=== PATIENT | male | born 1960 | race African-American/Black ===

== ENCOUNTER 2019-06-13 20:01 | Inpatient (IN) | payer OTHER ==
[2019-06-13 21:32] VITALS: BMI 30.4
--- NOTE | 2019-06-14 00:43 | HP ---
COWS - Scale Resting Pulse: 0= IN 80 or Below Sweatin=Flushed/Facial Moisture Restless Observation: 0= Sits Still Pupil Size: 1= Pupils >than Normal Bone or Joint Aches: 4=Acute Joint/Muscle Pain Runny Nose/ Eye Tearin= Runny Nose/Eyes GI Upset > 30mins: 2= Nausea/Diarrhea (diarrhea x 2) Tremor Observation: 2= Slight Tremor Visible Yawning Observation: 1= 1-2x During Session Anxiety or Irritability: 2=Irritable/Anxious Goose Flesh Skin: 0=Smooth Skin COWS Score: 16 CIWA Score - Admission Criteria OASAS Guidelines: Admission for Medically Managed Detox: Requires at least one of the followin. CIWA greater than 12 2. Seizures within the past 24 hours 3. Delirium tremens within the past 24 hours 4. Hallucinations within the past 24 hours 5. Acute intervention needed for co occurring medical disorder 6. Acute intervention needed for co occurring psychiatric disorder 7. Severe withdrawal that cannot be handled at a lower level of care (continued vomiting, continued diarrhea, abnormal vital signs) requiring intravenous medication and/or fluids 8. Admission ROS [facility] Chief Complaint: Heroin withdrawal symptoms Allergies/Adverse Reactions: Allergies Allergy/AdvReac Type Severity Reaction Status Date / Time No Known Allergies Allergy Verified 06/13/19 21:10 History of Present Illness: 58 years old male with a long history of heroin dependence is seeking admission to detox. He states that he has been in detox several years ago and reports insignificant period of sobriety. He has medical history of DM type 2, and low back pain. This isd his first admission to [facility] Exam Limitations: Physical Impairment - Ebola screening Have you traveled outside of the country in the last 21 days: No (N) Have you had contact with anyone from an Ebola affected area: No Do you have a fever: No - Review of Systems Constitutional: Chills, Malaise, Night Sweats, Changes in sleep EENT: reports: No Symptoms Reported, Nose Congestion Respiratory: reports: No Symptoms reported Cardiac: reports: No Symptoms Reported GI: reports: No Symptoms Reported, Abdominal Distended : reports: No Symptoms Reported Musculoskeletal: reports: Back Pain, Joint Pain, Other (bilateral log) Integumentary: reports: Dryness, Flushing Neuro: reports: Headache, Tremors Endocrine: reports: No Symptoms Reported Hematology: reports: No Symptoms Reported Psychiatric: reports: Mood/Affect Appropiate, Orientated x3, Anxious Other Systems: Reviewed and Negative Patient History - Patient Medical History Hx Anemia: No Hx Asthma: No Hx Chronic Obstructive Pulmonary Disease (COPD): No Hx Cancer: No Hx Cardiac Disorders: No Hx Congestive Heart Failure: No Hx Hypertension: Yes Hx Hypercholesterolemia: Yes Hx Pacemaker: No HX Cerebrovascular Accident: No Hx Seizures: No Hx Dementia: No Hx Diabetes: Yes (Metformin) Hx Gastrointestinal Disorders: Yes (Omeprazole) Hx Liver Disease: No Hx Genitourinary Disorders: No Hx Sexually Transmitted Disorders: No Hx Renal Disease (ESRD): No Hx Thyroid Disease: No Hx Human Immunodeficiency Virus (HIV): No (Negative) Hx Hepatitis C: No Hx Depression: No Hx Suicide Attempt: No (Denies suicidal ideation at this time) Hx Bipolar Disorder: No Hx Schizophrenia: No - Patient Surgical History Past Surgical History: Yes Hx Neurologic Surgery: No Hx Cataract Extraction: No Hx Cardiac Surgery: No Hx Lung Surgery: No Hx Abdominal Surgery: No Hx Appendectomy: No Hx Cholecystectomy: No Hx Genitourinary Surgery: No Hx Orthopedic Surgery: No Other Surgical History: Hemmoroid 1998 Anesthesia Reaction: No - PPD History Previous Implant?: Yes Documented Results: Negative w/o proof Implanted On Prior R Admission?: No PPD to be Administered?: Yes - Reproductive History Patient is a Female of Child Bearing Age (11 -55 yrs old): No (male) - Smoking Cessation Smoking history: Current every day smoker Have you smoked in the past 12 months: Yes Aproximately how many cigarettes per day: 10 Hx Chewing Tobacco Use: No Initiated information on smoking cessation: Yes 'Breaking Loose' booklet given: 06/14/19 - Substance & Tx. History Hx Alcohol Use: No Hx Substance Use: Yes Substance Use Type: Heroin Hx Substance Use Treatment: Yes - Substances abused Heroin Substance route: Inhalation Frequency: Daily Amount used: 1 to 2 bundles ( 1 bundle is 10 bags) Age of first use: 54 Date of last use: 06/13/19 Admission Physical Exam [facility] - Vital Signs Vital Signs: Vital Signs - 24 hr 06/13/19 21:10 Temperature 99.9 F H Pulse Rate 77 Respiratory 20 Rate Blood Pressure 138/77 - Physical General Appearance: Yes: Nourished, Tremorous, Anxious HEENTM: Yes: EOMI, Normal ENT Inspection, Normal Voice, SANDRA Respiratory: Yes: Lungs Clear, Normal Breath Sounds, No Respiratory Distress Neck: Yes: Within Normal Limits, Supple Breast: Yes: Breast Exam Deferred Cardiology: Yes: Regular Rhythm, Regular Rate Abdominal: Yes: Normal Bowel Sounds, Soft Genitourinary: Yes: Within Normal Limits Back: Yes: Normal Inspection Musculoskeletal: Yes: Within Normal Limits Extremities: Yes: Tremors Neurological: Yes: Fully Oriented, Motor Strength 5/5, Normal Mood/Affect Integumentary: Yes: Warm Lymphatic: Yes: Within Normal Limits - Diagnostic (1) DMII (diabetes mellitus, type 2) Current Visit: Yes Status: Acute (2) Hypertension Current Visit: Yes Status: Acute (3) Hyperlipemia Current Visit: Yes Status: Acute (4) GERD (gastroesophageal reflux disease) Current Visit: Yes Status: Acute (5) Opioid dependence with withdrawal Current Visit: Yes Status: Acute (6) Nicotine dependence Current Visit: Yes Status: Acute Cleared for Admission S - Detox or Rehab [facility] Level of Care: Medically Managed Detox Regimen/Protocol: Methadone Breathalyzer - Breathalyzer Breathalyzer: 0 Inpatient Rehab Admission - Rehab Decision to Admit Inpatient rehab admission?: No
[2019-06-14] MEDS ORDERED: ACETAMINOPHEN 325 MG TABLET (FP) PO PRN ×2 (01:11)
[2019-06-14] MEDS ORDERED: MAGNESIUM HYDROX 2400MG/30ML ORAL SUSPENSION 30 ML CUP PO PRN (01:11)
[2019-06-14] MEDS ORDERED: cloNIDine HCL 0.1 MG TABLET PO PRN (01:11)
[2019-06-14] MEDS ORDERED: MELATONIN 5 MG TABLETS PO PRN (01:11)
[2019-06-14] MEDS ORDERED: IBUPROFEN 400 MG TABLET (FP) PO PRN (01:11)
[2019-06-14] MEDS ORDERED: NICOTINE POLACRILEX 2 MG GUM BUC PRN (01:11)
[2019-06-14] MEDS ORDERED: METHADONE HCL 10 MG TABLET (FOR DETOX USE ONLY) PO ONE (01:11)
[2019-06-14] MEDS ORDERED: MAGNESIUM CITRATE 300 ML BOTTLE PO PRN (01:11)
[2019-06-14] MEDS ORDERED: MENTHOL/PHENOL 1 EACH UD MM PRN (01:11)
[2019-06-14] MEDS ORDERED: BISMUTH SUBSALICYLATE 524 MG/30 ML UD PO PRN (01:11)
[2019-06-14] MEDS ORDERED: MAG HYDROX/AL HYDROX/SIMETH 30 ML UNIT-DOSE CUP PO PRN (01:11)
[2019-06-14] MEDS ORDERED: METHOCARBAMOL 500 MG TABLET PO PRN (01:11)
[2019-06-14] MEDS ORDERED: METHADONE HCL 10 MG TABLET PO ONE (02:48)
[2019-06-14] MEDS: INSULIN (NOVOLOG) ASPART 100 UNITS/ML 10ML VIAL SQ SCH ×2 (09:00→17:08)
[2019-06-14] MEDS ORDERED: PATIENT'S OWN MEDICATION (NON-FORMULARY) (Metformin Hcl [Glucophage] 1,000 MG) PO SCH (10:00)
[2019-06-14] MEDS: NICOTINE 14 MG/24 HOURS TOPICAL PATCH TD SCH (10:53)
[2019-06-14] MEDS: PRENATAL VITAMINS W/ FOLIC ACID TABLET (FP) PO SCH (10:54)
[2019-06-14] MEDS: metFORMIN HCL 500 MG TABLET (FP) PO SCH ×2 (11:35→17:06)
[2019-06-14] MEDS: ASPIRIN 81 MG CHEWABLE TABLETS PO SCH (11:36)
[2019-06-14] MEDS ORDERED: INSULIN SLIDING SCALE (NOVOLOG) 1 VIAL SQ ONE (16:56)
[2019-06-14] MEDS: hydrOXYzine PAMOATE 25 MG CAPSULE (FP) PO PRN (22:29)
[2019-06-14] MEDS: THIAMINE HCL 100 MG TABLET (FP) PO SCH (22:29)
--- NOTE | 2019-06-14 23:26 | EKG ---
Test Reason : Blood Pressure : / mmHG Vent. Rate : 066 BPM Atrial Rate : 066 BPM P-R Int : 174 ms QRS Dur : 102 ms QT Int : 404 ms P-R-T Axes : 063 -12 036 degrees QTc Int : 423 ms NORMAL SINUS RHYTHM NORMAL ECG NO PREVIOUS ECGS AVAILABLE Confirmed by COLETTE NEUMANN MD ([id number]) on 06/14/2019 11:26:24 PM Referred By: John Hernandez Confirmed By:COLETTE NEUMANN MD
[2019-06-15] MEDS: metFORMIN HCL 500 MG TABLET (FP) PO SCH ×2 (07:46→17:28)
[2019-06-15] MEDS ORDERED: INSULIN SLIDING SCALE (NOVOLOG) 1 VIAL SQ ONE (08:06)
[2019-06-15] MEDS: INSULIN (NOVOLOG) ASPART 100 UNITS/ML 10ML VIAL SQ SCH ×2 (08:10→17:13)
[2019-06-15] MEDS ORDERED: METHADONE HCL 10 MG TABLET (FOR DETOX USE ONLY) ONE (09:12)
[2019-06-15] MEDS ORDERED: METHADONE HCL 5 MG TABLET (FOR DETOX USE ONLY) ONE (09:12)
[2019-06-15 09:58] LABS: HEMATOCRIT 38.1 % (35.4-49); HEMOGLOBIN 12.5 GM/dL (11.7-16.9); MCH 28.7 pg (25.7-33.7); MCHC 32.8 g/dl (32.0-35.9); MEAN CELL VOLUME 87.5 fl (80-96); MEAN PLT VOLUME 11.7 fl (7.5-11.1); PLATELET COUNT 196 K/MM3 (134-434); RBC 4.35 M/mm3 (4.00-5.60); RDW 14.4 % (11.9-15.9); WHITE BLOOD COUNT 6.2 K/mm3 (4.0-10.0)
[2019-06-15] MEDS ORDERED: METHADONE (DETOX) 20 MG, METHADONE (DETOX) 5 MG PO ONE (10:00)
[2019-06-15 10:13] LABS: ALBUMIN 3.3 g/dl (3.4-5.0); BILIRUBIN,TOTAL 0.3 mg/dL (0.2-1); BLOOD UREA NITROGEN 11.9 mg/dL (7-18); CALCIUM 9.5 mg/dL (8.5-10.1); CREATININE 0.9 mg/dL (0.55-1.3); POTASSIUM 4.4 mmol/L (3.5-5.1); TOT PROT 6.7 g/dl (6.4-8.2)
[2019-06-15] MEDS: PRENATAL VITAMINS W/ FOLIC ACID TABLET (FP) PO SCH (10:16)
[2019-06-15] MEDS: ASPIRIN 81 MG CHEWABLE TABLETS PO SCH (10:17)
[2019-06-15] MEDS: NICOTINE 14 MG/24 HOURS TOPICAL PATCH TD SCH (10:19)
--- NOTE | 2019-06-15 11:37 | PN ---
S COWS - Scale Resting Pulse: 0= OR 80 or Below Sweatin= Chills/Flushing Restless Observation: 0= Sits Still Pupil Size: 1= Pupils >than Normal Bone or Joint Aches: 2= Severe Diffuse Aches Runny Nose/ Eye Tearin= None GI Upset > 30mins: 1= Stomach Cramp Tremor Observation of Outstretched Hands: 2= Slight Tremor Visible Yawning Observation: 1= 1-2x During Session Anxiety or Irritability: 2=Irritable/Anxious Goose Flesh Skin: 3=Piloerection COWS Score: 13 BHS Progress Note (SOAP) Subjective: 58 years old male admitted on 06/14/19 for opiate withdrawal sx management treated with methadone detox regimen reports none compliance with insulin as prescribed bgm gradually reducing that admission glucose 513 discuss risks of glucose elevation and benefits of weight loss Objective: 06/15/19 11:44 Vital Signs Temperature 99.4 F 06/15/19 09:09 Pulse Rate 70 06/15/19 09:09 Respiratory Rate 18 06/15/19 09:09 Blood Pressure 139/81 06/15/19 09:09 O2 Sat by Pulse Oximetry (%) Laboratory Last Values WBC 6.2 K/mm3 (4.0-10.0) 06/15/19 05:40 RBC 4.35 M/mm3 (4.00-5.60) 06/15/19 05:40 Hgb 12.5 GM/dL (11.7-16.9) 06/15/19 05:40 Hct 38.1 % (35.4-49) 06/15/19 05:40 MCV 87.5 fl (80-96) 06/15/19 05:40 MCH 28.7 pg (25.7-33.7) 06/15/19 05:40 MCHC 32.8 g/dl (32.0-35.9) 06/15/19 05:40 RDW 14.4 % (11.9-15.9) 06/15/19 05:40 Plt Count 196 K/MM3 (134-434) 06/15/19 05:40 MPV 11.7 fl (7.5-11.1) H 06/15/19 05:40 Sodium 134 mmol/L (136-145) L 06/15/19 05:40 Potassium 4.4 mmol/L (3.5-5.1) 06/15/19 05:40 Chloride 98 mmol/L (98-107) 06/15/19 05:40 Carbon Dioxide 29 mmol/L (21-32) 06/15/19 05:40 Anion Gap 7 MMOL/L (8-16) L 06/15/19 05:40 BUN 11.9 mg/dL (7-18) 06/15/19 05:40 Creatinine 0.9 mg/dL (0.55-1.3) 06/15/19 05:40 Est GFR (CKD-EPI)AfAm 110.27 06/15/19 05:40 Est GFR (CKD-EPI)NonAf 95.14 06/15/19 05:40 POC Glucometer 376 UNITS (80-120) 06/15/19 05:46 Random Glucose 513 mg/dL (74-106) H* 06/15/19 05:40 Calcium 9.5 mg/dL (8.5-10.1) 06/15/19 05:40 Total Bilirubin 0.3 mg/dL (0.2-1) 06/15/19 05:40 AST 10 U/L (15-37) L 06/15/19 05:40 ALT 18 U/L (13-61) 06/15/19 05:40 Alkaline Phosphatase 143 U/L (45-117) H 06/15/19 05:40 Total Protein 6.7 g/dl (6.4-8.2) 06/15/19 05:40 Albumin 3.3 g/dl (3.4-5.0) L 06/15/19 05:40 RPR Titer Nonreactive (NONREACTIVE) 06/15/19 05:40 HIV 1&2 Antibody Screen Negative 06/14/19 07:40 HIV P24 Antigen Negative 06/14/19 07:40 lab noted long history of insulin dependent diabetes Assessment: 06/15/19 11:45 opiate withdrawal sx Plan: continue methadone detox regimen
[2019-06-15] MEDS: INSULIN SLIDING SCALE (NOVOLOG) 1 VIAL SQ SCH ×2 (12:16→17:14)
[2019-06-15] MEDS ORDERED: INSULIN SLIDING SCALE (NOVOLOG) 1 VIAL SQ SCH (16:30)
[2019-06-15] MEDS: THIAMINE HCL 100 MG TABLET (FP) PO SCH (22:54)
[2019-06-16] MEDS: hydrOXYzine PAMOATE 25 MG CAPSULE (FP) PO PRN (03:52)
[2019-06-16 06:14] VITALS: BP 136/79; PULSE 55; TEMP 97.2
[2019-06-16] MEDS: INSULIN SLIDING SCALE (NOVOLOG) 1 VIAL SQ SCH (06:24)
[2019-06-16] MEDS: INSULIN (NOVOLOG) ASPART 100 UNITS/ML 10ML VIAL SQ SCH (06:24)
[2019-06-16] MEDS: metFORMIN HCL 500 MG TABLET (FP) PO SCH (06:25)
[2019-06-16] MEDS ORDERED: METHADONE HCL 10 MG TABLET (FOR DETOX USE ONLY) PO ONE (10:00)
[2019-06-16] MEDS: ASPIRIN 81 MG CHEWABLE TABLETS PO SCH (10:08)
[2019-06-16] MEDS: PRENATAL VITAMINS W/ FOLIC ACID TABLET (FP) PO SCH (10:08)
[2019-06-16] MEDS: NICOTINE 14 MG/24 HOURS TOPICAL PATCH TD SCH (10:11)
--- NOTE | 2019-06-16 12:12 | DS ---
[facility] Detox Discharge Summary Admission Date: 06/14/19 Discharge Date: 06/16/19 - History Present History: Opioid Dependence Additional Comments: 58 years old male admitted on 06/14/19 for opiate withdrawal sx management treated with methadone detox regimen received methadone 20mg today and insisted to leave the detox unit without apparent reason "I want to leave" encourage to explore medication assisted treatment program and shrimp picker narcan from pharmacy patient seems not interesting at this time - Physical Exam Results Vital Signs: Vital Signs Temperature 97.2 F L 06/16/19 06:14 Pulse Rate 55 L 06/16/19 06:14 Respiratory Rate 18 06/16/19 06:14 Blood Pressure 136/79 06/16/19 06:14 O2 Sat by Pulse Oximetry (%) Pertinent Admission Physical Exam Findings: opiate withdrawal sx Laboratory Last Values WBC 6.2 K/mm3 (4.0-10.0) 06/15/19 05:40 RBC 4.35 M/mm3 (4.00-5.60) 06/15/19 05:40 Hgb 12.5 GM/dL (11.7-16.9) 06/15/19 05:40 Hct 38.1 % (35.4-49) 06/15/19 05:40 MCV 87.5 fl (80-96) 06/15/19 05:40 MCH 28.7 pg (25.7-33.7) 06/15/19 05:40 MCHC 32.8 g/dl (32.0-35.9) 06/15/19 05:40 RDW 14.4 % (11.9-15.9) 06/15/19 05:40 Plt Count 196 K/MM3 (134-434) 06/15/19 05:40 MPV 11.7 fl (7.5-11.1) H 06/15/19 05:40 Sodium 134 mmol/L (136-145) L 06/15/19 05:40 Potassium 4.4 mmol/L (3.5-5.1) 06/15/19 05:40 Chloride 98 mmol/L (98-107) 06/15/19 05:40 Carbon Dioxide 29 mmol/L (21-32) 06/15/19 05:40 Anion Gap 7 MMOL/L (8-16) L 06/15/19 05:40 BUN 11.9 mg/dL (7-18) 06/15/19 05:40 Creatinine 0.9 mg/dL (0.55-1.3) 06/15/19 05:40 Est GFR (CKD-EPI)AfAm 110.27 06/15/19 05:40 Est GFR (CKD-EPI)NonAf 95.14 06/15/19 05:40 POC Glucometer 346 UNITS (80-120) 06/16/19 05:17 Random Glucose 513 mg/dL (74-106) H* 06/15/19 05:40 Calcium 9.5 mg/dL (8.5-10.1) 06/15/19 05:40 Total Bilirubin 0.3 mg/dL (0.2-1) 06/15/19 05:40 AST 10 U/L (15-37) L 06/15/19 05:40 ALT 18 U/L (13-61) 06/15/19 05:40 Alkaline Phosphatase 143 U/L (45-117) H 06/15/19 05:40 Total Protein 6.7 g/dl (6.4-8.2) 06/15/19 05:40 Albumin 3.3 g/dl (3.4-5.0) L 06/15/19 05:40 RPR Titer Nonreactive (NONREACTIVE) 06/15/19 05:40 HIV 1&2 Antibody Screen Negative 06/14/19 07:40 HIV P24 Antigen Negative 06/14/19 07:40 lab noted long history of diabetes encourage weight loss and dietary compliance as well as pharmacotherapy - Treatment Hospital Course: Detox Protocol Followed, Responded well, Discharged Condition Good Patient has Accepted a Rehab [facility] - Medication Discharge Medications: Ambulatory Orders Aspirin [ASA -] 81 mg PO DAILY 06/13/19 Insulin Aspart [Novolog] 30 unit SQ BID 06/13/19 Metformin HCl [Glucophage] 1,000 mg PO BID 06/13/19 Naloxone HCl [Narcan] 4 mg NS ASDIR PRN #1 spray 06/15/19 - AMA Did Patient Leave Against Medical Advice: Yes
[2019-06-17] MEDS ORDERED: METHADONE (DETOX) 10 MG, METHADONE (DETOX) 5 MG PO ONE (10:00)
[2019-06-18] MEDS ORDERED: METHADONE HCL 10 MG TABLET (FOR DETOX USE ONLY) PO ONE (10:00)
[2019-06-19] MEDS ORDERED: METHADONE HCL 5 MG TABLET (FOR DETOX USE ONLY) PO ONE (06:00)
== END 2019-06-16 11:09 | disposition left against medical advice (07) | DRG 770 ==
LOC: YASAS 20:01 → Y3N 06-14 01:31
PROVIDERS: ADMIT Allergy & Immunology; ATTEND Allergy & Immunology
PROC: HZ2ZZZZ Detoxification Services for Substance Abuse Treatment (ICD-10-PCS; principal; 2019-06-14)
DX: F11.23 Opioid dependence with withdrawal (principal); F17.210 Nicotine dependence, cigarettes, uncomplicated; E78.5 Hyperlipidemia, unspecified; I10 Essential (primary) hypertension; E11.9 Type 2 diabetes mellitus without complications; Z79.4 Long term (current) use of insulin; K21.9 Gastro-esophageal reflux disease without esophagitis; M54.5 Low back pain
CPT/HCPCS: 36415; 80053; 82962; 85027; 86593; 87389; 93005; 93010; J0735